=== PATIENT | male | born 1955 | race Caucasian/White ===

== ENCOUNTER 2017-06-29 09:46 | Emergency (ER) | payer OTHER ==
[2017-06-29 09:46] VITALS: BMI 26.9
[2017-06-29 09:57] VITALS: O2SAT 96
[2017-06-29] MEDS ORDERED: Sodium Chloride 0.9% 1,000 ML IV ONE (10:34)
[2017-06-29] MEDS ORDERED: Sodium Chloride 0.9% 1,000 ML ONE (10:47)
[2017-06-29] MEDS ORDERED: Iohexol 240 (50 ml) PO ONE (11:05)
[2017-06-29] MEDS ORDERED: Iohexol 240 (50 ml) ONE (11:10)
[2017-06-29 11:17] LABS: BASO % 0.5 % (0.0-2.0); EOS % 0.9 % (0.0-4.0); HEMOGLOBIN 11.2 g/dL (12.0-18.0); LYMPH # 1.2 K/uL (1.0-4.3); LYMPH % 37.9 % (20.0-40.0); MEAN CELL VOLUME 84.9 fL (80.0-94.0); MEAN CORPUSCULAR HEMOGLOBIN 28.5 pg (27.0-31.0); MEAN CORPUSCULAR HGB CONC 33.5 g/dL (33.0-37.0); MEAN PLATELET VOLUME 6.8 fL (7.2-11.7); MONO # 0.4 K/uL (0.0-0.8); MONO % 12.4 % (0.0-10.0); NEUT # 1.6 K/uL (1.8-7.0); NEUT % 48.3 % (50.0-75.0); NRBC % 0.1 % (0.0-2.0); RBC 3.95 Mil/uL (4.40-5.90); RED CELL DISTRIBUTION WIDTH 15.6 % (11.5-14.5); WHITE BLOOD COUNT 3.2 K/uL (4.8-10.8)
[2017-06-29 11:37] LABS: ALB/GLOB RATIO 1.2 (1.0-2.1); ALBUMIN 4.1 g/dL (3.5-5.0); ALT/SGPT 7 U/L (21-72); AMYLASE 65 U/L (30-110); AST/SGOT 26 U/L (17-59); BLOOD UREA NITROGEN 17 mg/dL (9-20); CALCIUM 9.5 mg/dl (8.6-10.4); GFR AFRICAN-AMERICAN > 60; GFR NON-AFRICAN AMERICAN > 60; LIPASE 89 U/L (23-300)
[2017-06-29] MEDS ORDERED: Iohexol 350mg/ml 100 ML ONE (12:14)
[2017-06-29 12:51] LABS: SQUAMOUS EPITHIAL < 1 /hpf (0-5); URINE BILIRUBIN NEGATIVE (NEGATIVE); URINE BLOOD NEGATIVE (NEGATIVE); URINE CLARITY Clear (Clear); URINE COLOR Straw (YELLOW); URINE GLUCOSE (UA) NORMAL (Normal); URINE LEUKOCYTE ESTERASE NEG Leu/uL (Negative); URINE PROTEIN NEGATIVE (NEGATIVE); URINE UROBILINOGEN NORMAL mg/dL (0.2-1.0)
--- NOTE | 2017-06-29 13:39 | CT ---
PROCEDURE: CT Abdomen and Pelvis with contrast HISTORY: abd pain COMPARISON: None. TECHNIQUE: Contrast dose: Omnipaque 350, 100 cc Radiation dose: Total exam DLP = 454.71 mGy-cm. This CT exam was performed using one or more of the following dose reduction techniques: Automated exposure control, adjustment of the mA and/or kV according to patient size, and/or use of iterative reconstruction technique. FINDINGS: LOWER THORAX: A tiny subpleural nodule measures 4 mm in image 12 series 3 at the inferior right middle lobe subpleural space. There is a minimal right pleural effusion, with none on the left. Cardiac size appears normal. LIVER: Minimal diminished attenuation of the liver suggests very limited diffuse fatty infiltration without focal mass evident. GALLBLADDER AND BILE DUCTS: The gallbladder appears mildly distended. No radiodense cholelithiasis related. PANCREAS: Pancreas appears grossly nonfocal but is displaced antro superiorly by gross lymphadenopathy in the retroperitoneum. SPLEEN: Unremarkable. ADRENALS: Unremarkable. No mass. KIDNEYS AND URETERS: Unremarkable. No hydronephrosis. No solid mass. VASCULATURE: Please see and lymph node delete section below. BOWEL: The stomach is distended with a mild amount of oral contrast material. Large small bowel R nonobstructed and remarkable only for limited left colonic diverticular changes. APPENDIX: Normal appendix. PERITONEUM: Trace bilateral pericolic fluid is appreciated, likely not a function of diverticulitis but clinical correlation is advised. No free air. LYMPH NODES: A large aggregate of apparent lymphadenopathy is appreciated expanding the retroperitoneum, measuring 11.5 x 15.2 x 18.5 cm (transverse by anteroposterior by superoinferior dimensions). The soft tissue similar to muscle density and encases central vascular anatomy including the superior mesenteric artery, celiac artery and branch local branches and the mid abdominal aorta. Well as pattern is highly suspicious for lymphoma, infectious etiologies are not excluded and further clinical correlation is advised. The bowel is displaced peripheral to this conglomerate mass. BLADDER: Unremarkable. REPRODUCTIVE: Prostate gland appears mildly enlarged. BONES: No acute fracture. OTHER FINDINGS: None. IMPRESSION: Gross retroperitoneal lymphadenopathy is appreciated displace the prior pancreas anterosuperiorly and the bowel in a peripheral fashion as well as encasing central vascular anatomy including the mid abdominal aorta. Lymphoma is in question with metastatic disease possible. Infectious or inflammatory causes are included differential diagnosis but are not favored. Minimal hepatic steatosis. Limited left colonic diverticulosis. Trace bilateral pericolic fluid is seen, probably a function of lymphadenopathy will rather than left sided diverticulitis but clinical correlation is advised.
--- NOTE | 2017-06-29 14:16 | C.PDOC ---
History Of Present Illness 61 yo male w/o significant PMHx come in accompanied by family member for evaluation of abdominal cramping for past month. Pt sts, during the night have more pronounced abdominal pain, epigastric, relived with soda. Pt denies change in appetite, although noted pain is slightly worse hour later after food intake. Otherwise, pt denies fever, chills, headache, dizziness, weakness, CP, SOB, dyspnea, diaphoresis, palpitation, vomiting, hematemesis, melena, back pain. Ambulate to ED for evaluation, not in any apparent distress. Time Seen by Provider: 06/29/17 10:17 Chief Complaint (Nursing): Abdominal Pain History Per: Patient, Family Onset/Duration Of Symptoms: Gradual Past Medical History Reviewed: Historical Data, Nursing Documentation, Vital Signs Vital Signs: Last Vital Signs Temp 98.1 F 06/29/17 14:47 Pulse 86 06/29/17 14:47 Resp 16 06/29/17 14:47 BP 130/85 06/29/17 14:47 Pulse Ox 96 06/29/17 14:47 - Medical History PMH: No Chronic Diseases Surgical History: No Surg Hx - [facility] Procedures COLONOSCOPY (01/01/14) Family History: States: Unknown Family Hx - Social History Hx Tobacco Use: No Hx Alcohol Use: Yes Hx Substance Use: No - Immunization History Hx Tetanus Toxoid Vaccination: No Hx Influenza Vaccination: No Hx Pneumococcal Vaccination: No Review Of Systems Except As Marked, All Systems Reviewed And Found Negative. Constitutional: Negative for: Fever, Chills, Weakness, Malaise ENT: Negative for: Throat Pain Cardiovascular: Negative for: Chest Pain, Palpitations Respiratory: Negative for: Cough, Shortness of Breath, Wheezing Gastrointestinal: Positive for: Abdominal Pain. Negative for: Vomiting, Diarrhea, Melena, Hematochezia, Hematemesis Genitourinary: Negative for: Dysuria Musculoskeletal: Negative for: Neck Pain, Back Pain Neurological: Negative for: Weakness, Numbness, Altered Mental Status, Headache , Dizziness Physical Exam - Physical Exam Appears: Well, Non-toxic, No Acute Distress Skin: Normal Color, Warm, Dry, No Rash Eye(s): bilateral: PERRL Nose: No Flaring, No Discharge Throat: No Drooling Neck: Trachea Midline, Supple Cardiovascular: Rhythm Regular, No Murmur, No JVD Respiratory: No Decreased Breath Sounds, No Accessory Muscle Use, No Stridor, No Wheezing Gastrointestinal/Abdominal: Bowel Sounds (normal), Soft, Tenderness (mild epigastric ), Mass (Right periumbilical), Distention (mild), No Guarding, No Rebound Back: No CVA Tenderness Extremity: Normal ROM, No Deformity, No Swelling Neurological/Psych: Oriented x3, Normal Speech ED Course And Treatment - Laboratory Results Result Diagrams: 06/29/17 11:11 06/29/17 11:11 Lab Interpretation: Abnormal O2 Sat by Pulse Oximetry: 96 Pulse Ox Interpretation: Normal - CT Scan/US CT abd/pelvis Other Rad Studies (CT/US): Radiology Report Reviewed CT/US Interpretation: IMPRESSION: Gross retroperitoneal lymphadenopathy is appreciated displace the prior pancreas anterosuperiorly and the bowel in a peripheral fashion as well as encasing central vascular anatomy including the mid abdominal aorta. Lymphoma is in question with metastatic disease possible. Infectious or inflammatory causes are included differential diagnosis but are not favored. Minimal hepatic steatosis. Limited left colonic diverticulosis. Trace bilateral pericolic fluid is seen, probably a function of lymphadenopathy will rather than left sided diverticulitis but clinical correlation is advised. Progress Note: On re-eval, pt still remained stable. Afebrile, hemodynamicaly stable. Non-toxic, tolerate Po well in ED. PuslEOx 96% RA. neck: Supple, (-) carotid bruits B/L, (-) JVD. ENT: no acute findings. Lungs: CTA B/L, BS equal B/L. Abd: benign, (-) guarding, (-) rebound. Neuorlogicaly intact. Bloodwork review, mild neuropenia and anemia noted. Imaging review (+) ?lymphoma. results review and discussed with patient and family. Appoitment scheduled at Clinic on 07/09/17 at 1PM for further eval. Patient understand and agrees with plan. Stxabe for discharge now. Disposition Counseled Patient/Family Regarding: Studies Performed, Diagnosis, Need For Followup - Disposition Referrals: [facility] [Outside] Disposition: HOME/ ROUTINE Disposition Time: 14:13 Condition: STABLE Additional Instructions: FOLLOW UP WITH MEDICAL CLINIC ON July AT 1PM FOR FURTHER EVALUATION AND TREATMENT RETURN TO ED IF ANY WORSENING OR NEW CHANGES. Instructions: Lymphoma (DC) Forms: [employer] (Belarusian) Print Language: TELUGU - Clinical Impression Clinical Impression: Abdominal pain, Lymphoma
[2017-06-29 14:52] VITALS: BP 130/85; PULSE 86; RESP 16; TEMP 98.1
== END 2017-06-29 14:53 | disposition home or self-care (01) ==
LOC: C.ER 09:46
DX: C85.90 Non-Hodgkin lymphoma, unspecified, unspecified site (principal); R10.9 Unspecified abdominal pain
CPT/HCPCS: 74177; 80053; 81001; 82150; 83690; 85025; 99285; J7030; Q9966; Q9967